=== PATIENT | female | born 1965 | race Caucasian/White ===

== ENCOUNTER 2022-11-11 10:04 | Day surgery (SDC) | payer OTHER ==
[2022-11-07 12:05] VITALS: BMI 25.0
[2022-11-11] MEDS ORDERED: Lidocaine 2% PF 5 ML VIAL ONE (12:13)
[2022-11-11] MEDS ORDERED: PROPOFOL 20 ML ONE (12:13)
[2022-11-11] MEDS ORDERED: Dexamethasone 4 mg/ml Vial ONE (12:13)
[2022-11-11] MEDS ORDERED: Ondansetron PF 4 MG/2 ML Vial ONE (12:13)
[2022-11-11] MEDS ORDERED: Midazolam HCl 2 mg/2 ml Vial ONE (12:44)
[2022-11-11] MEDS ORDERED: Fentanyl 250 MCG/5 ML VIAL ONE (12:44)
[2022-11-11] MEDS ORDERED: Bupivacaine 0.25% HCL 30 ML VIAL ONE (13:04)
[2022-11-11] MEDS ORDERED: Lidocaine 2% 6 ML (Jelly) SYR ONE (13:05)
[2022-11-11] MEDS ORDERED: CEFAZOLIN 2 GM VIAL ONE (13:20)
[2022-11-11] MEDS ORDERED: EPINEPHrine 1 MG/ML AMP ONE (14:12)
== END 2022-11-11 15:05 | disposition home or self-care (01) ==
LOC: CSHSDC 10:04
PROVIDERS: ATTEND Surgery
PROC: 06BY0ZC Excision of Hemorrhoidal Plexus, Open Approach (ICD-10-PCS; principal; 2022-11-11)
DX: K64.3 Fourth degree hemorrhoids (principal); K64.4 Residual hemorrhoidal skin tags; K21.9 Gastro-esophageal reflux disease without esophagitis; F32.A Depression, unspecified; Z88.2 Allergy status to sulfonamides; Z79.899 Other long term (current) drug therapy
CPT/HCPCS: 88304; J0171; J1100; J2001; J2250; J2405; J2704; J3010; S0020